=== PATIENT | male | born 1960 | race Caucasian/White ===

== ENCOUNTER 2020-08-16 09:59 | Emergency (ER) | payer OTHER, SELFPAY ==
[2020-08-16 10:01] VITALS: BP 116/61; PULSE 62; RESP 17; TEMP 36.1; O2SAT 98; BMI 26.6
--- NOTE | 2020-08-16 10:24 | CT_ITS ---
STUDY: CT ABDOMEN AND PELVIS WITHOUT CONTRAST REASON FOR EXAM: Male, 60 years old. LEFT SIDE ABD PAIN TODAY, NAUSEA RADIATION DOSAGE (If Supplied By Facility): CTDIvol = ( 7.96 ) mGy, DLP = ( 399.65 ) mGycm TECHNIQUE: Transaxial images were obtained from the dome of the diaphragm to the symphysis pubis without oral contrast, and without intravenous contrast. Sagittal and coronal images were reconstructed. Individualized dose optimization techniques were used for this CT. COMPARISON: None. FINDINGS: Mild patchy bibasilar infiltrates. The visualized portions of the heart are within normal limits. Normal liver. Small solitary gallstone. Normal spleen. Normal pancreas. Normal bilateral adrenal glands. Normal right kidney. Mild degree of left hydronephrosis and left hydroureter due to a 5.6 mm x 6 mm calculus in the midportion of the left ureter. Tiny calculi are also seen in the midportion of the left ureter just proximal to the larger calculus. The more proximal calculus measures 3.7 mm. Normal visualized stomach. Normal small intestine. Normal colon. The appendix is visualized and appears normal. Normal abdominal aorta. Normal inferior vena cava. Normal retroperitoneum. Normal urinary bladder. There are prostatic calcifications. There is a small umbilical hernia containing fat. Disc space narrowing at the L3-L4 level. CT/Abdomen/Pelvis without Cont IMPRESSION: Mild left hydronephrosis and left hydroureter due to 3 small calculi in the midportion of the left ureter the largest measuring 5.6 mm x 6 mm. Prostatic calcifications. Small solitary gallstone. Electronically Signed: Travon Ocasio, at 11:13 EDT , Service support ,
[2020-08-16] MEDS: Ketorolac 30 MG/ML Syringe IM (10:32)
[2020-08-16] MEDS: 0.9% Normal Saline 1,000 ML 1000 ML IV (11:52)
[2020-08-16 12:02] LABS: Absolute Lymphocyte Count 0.93 X10^3/uL (0.83-4.51); Basophil# 0.03 X10^3/uL; Basophil% 0.6 % (0-1); Eosinophil# 0.11 X10^3/uL; Hematocrit 44.6 % (40-54); Hemoglobin 15.2 g/dL (13.0-16.5); Lymphocyte # 0.93 X10^3/ul (4.0); Lymphocyte % 17.3 % (19-41); Mean Corp Hgb Conc 34.1 g/dL (32-36); Mean Corpuscular Hgb 34.6 pg (27.0-32.0); Mean Corpuscular Volume 101.6 fL (80-94); Mean Platelet Vol. 9.1 fl (6.2-12.0); Monocyte# 0.26 X10^3/uL; Monocyte% 4.8 % (0-10); NRBC Flagged by Analyzer 0 % (0-5); Neutrophil # 4.03 X10^3/uL (2.7-7.7); Neutrophil % 75.1 % (47-70); Platelet Count 150 K/mm3 (150-450); RBC Distribution Width CV 13.5 % (11.6-14.6); Red Blood Count 4.39 M/mm3 (4.6-6.2); White Blood Count 5.4 K/mm3 (4.4-11.0)
[2020-08-16 12:03] LABS: Color, Urine Yellow (Yellow); Glucose, Dipstick Normal (Normal); Ketone-Dipstick 5 mg/dl (Negative); Leukocyte Esterase-Dipstick 25 /ul (Negative); Nitrite-Dipstick Negative (Negative); Occult Blood-Urine 250 /ul (Negative); Protein-Dipstick 100 mg/dl (Negative); Specific Gravity, Urine 1.025 (1.002-1.030); Urine Bilirubin Dipstick 1 mg/dL (Negative); Urine Clarity Sl. Cloudy (Clear); Urine Urobilinogen Normal (Normal)
[2020-08-16 12:16] LABS: Anion Gap 6 (5-15); BUN 14 mg/dL (7-18); BUN/Creat Ratio 10.1 RATIO (10-20); Calcium,Total 8.5 mg/dL (8.5-10.1); Chloride 103 mmol/L (98-107); Creatinine, Serum 1.39 mg/dL (0.70-1.30); EST Glomerular Filtration Rate 56 mL/min (>60); Est Glom Filt Rate - Afr Amer 67 mL/min (>60); Estimated Creatinine Clearance 57.93 ml/min; Glucose 108 mg/dL (74-106); Potassium 4.4 mmol/L (3.5-5.1); Sodium Level 139 mmol/L (136-145)
[2020-08-16 12:21] LABS: Bacteria RARE /hpf (None Seen); Mucous, Urine 1+ /hpf (<or=2+); Red Blood Cells-Urine 50-100 SEEN /hpf (0-5); Squamous Epithelial Cells - UA 0-5 SEEN /hpf (0-5); White Blood Cells 0-5 SEEN /hpf (0-5)
--- NOTE | 2020-08-16 12:41 | ED.DCSUM_ITS ---
History of Present Illness Chief Complaint: Abd Pain Narrative: Patient presenting for evaluation secondary to abdominal pain. Patient reports that about 2 hours prior to arrival he had a sudden onset of left lower quadrant abdominal pain. Patient states that he does have a history of kidney stones, he has required lithotripsy in the past. He is also had a past history of appendectomy. Pain is paroxysmal, waxing and waning, has no exacerbating relieving factors. No fevers. There has been nausea but no vomiting. No diarrhea. No dysuria hematuria. Review of systems otherwise negative. Past Medical History - Allergies and Home Meds Allergies/Adverse Reactions: Allergies nitroglycerin Adverse Reaction (Verified 08/16/20 10:01) PT UNSURE OF REACTION LOWERS MY BLOOD PRESSURE. Primary Care Physician: Lore García MD [Primary Care Provider] - Prior records reviewed: Yes Past Medical History: - - Past history of kidney stone Surgical History: appendectomy Lives: Spouse/ Significant Other Smoking Status: Former smoker Alcohol: None Drugs: None Review of Systems All systems negative except as indicated General: Denies: Chills, Fever, Sweats Eyes: Denies: Visual changes - bilaterally, Diplopia ENT: Denies: Rhinorrhea, Sore throat Cardiovascular: Denies: Chest pain, Palpitations Respiratory: Denies: Dyspnea, Cough, Dyspnea on exertion Gastrointestinal: Reports: Abdominal pain, Nausea Genitourinary: Denies: Dysuria, Hematuria, Frequency Musculoskeletal: Denies: Back pain, Extremity Pain Skin: Denies: Rash, Wounds Neurological: Denies: Headache, Weakness, Numbness Physical Exam Vital Signs/Narrative: Vital Signs Temp Pulse Resp BP Pulse Ox 08/16/20 10:01 96.9 F L 62 17 116/61 98 Inital Vital Signs reviewed: Yes General: Well nourished, Well developed, No Acute Distress Head: Normocephalic, Atraumatic Eyes: Perrl, EOMI ENT: Moist mucous membranes, No rhinorrhea Neck: Supple, Nontender Cardiovascular: Regular rate, Regular rhythm, No murmurs, - - 2+ DP pulses bilaterally symmetric. Respiratory: No distress, CTA bilaterally, Chest nontender Abdomen: Soft, Nontender, Nondistended, Normal bowel sounds, - - Patient complains of pain in the left lower quadrant but this is not reproducible. No flank tenderness. No evidence of overlying vesicular rash. Back: Nontender, Normal Inspection Extremities: Nontender, No edema Skin: Normal color, No rash Neurological: Alert, Oriented x3, Cranial nerves II-XII grossly intact, Normal Strength, Normal Sensation Psychological: Normal affect, Normal Mood Diagnostic/Tx/Re-eval Clinical Impression(s) from Imaging Studies Abdomen/Pelvis CT 08/16/20 10:24 IMPRESSION: Mild left hydronephrosis and left hydroureter due to 3 small calculi in the midportion of the left ureter the largest measuring 5.6 mm x 6 mm. Prostatic calcifications. Small solitary gallstone. Electronically Signed: Travon Ocasio, at 11:13 EDT , Service support , Laboratory Data 08/16/20 08/16/20 08/16/20 11:48 11:48 11:48 WBC 5.4 RBC 4.39 L Hgb 15.2 Hct 44.6 MCV 101.6 H MCH 34.6 H MCHC 34.1 RDW Std Deviation 51.0 H RDW Coeff of [place] 13.5 Plt Count 150 MPV 9.1 Immature Gran % (Auto) 0.200 Neut % (Auto) 75.1 H Lymph % (Auto) 17.[address] [place] % (Auto) 4.8 Eos % (Auto) 2.0 Baso % (Auto) 0.6 Absolute Neuts (auto) 4.0 Absolute Lymphs (auto) 0.93 Nucleated RBC % 0 Sodium 139 Potassium 4.4 Chloride 103 Carbon Dioxide 30.0 Anion Gap 6 BUN 14 Creatinine 1.39 H Estim Creat Clear Calc 57.93 Est GFR (MDRD) Af Amer 67 Est GFR (MDRD) Non-Af 56 L BUN/Creatinine Ratio 10.1 Glucose 108 H Calcium 8.5 Urine Color Yellow Urine Clarity Sl. Cloudy Urine pH 5.0 Ur Specific [place] 1.025 Urine Protein 100 H Urine Glucose (UA) Normal Urine Ketones 5 H Urine Occult Blood 250 H Urine Nitrite Negative Urine Bilirubin 1 H Urine Urobilinogen Normal Ur Leukocyte Esterase 25 H Urine RBC 50-100 SEEN Urine WBC 0-5 SEEN Ur Squamous Epith Cells 0-5 SEEN Urine Bacteria RARE Urine Mucus 1+ - Medical Decision Making Patient presented for evaluation secondary to flank pain. This started 2 hours prior to arrival, initially I did not feel the lab work was indicated. Urinalysis was checked shows hematuria no evidence of infection. CT abdomen and pelvis was performed however and this shows #3 left-sided nephroliths within the patient's ureter. IV was established to obtain baseline lab work. Patient's creatinine noted to be 1.3 without any prior to compare to. Patient had significant improvement of his pain with IM Toradol. Due to the fact that the patient has 3 kidney stones I do believe that he requires close urologic follow- up. Patient sees urologist in [place], Dr. Gastelum, who will be attempted to be contacted. I still feel the patient is appropriate for initial outpatient management. He was given strict return instructions. Patient will be given Iaeger and Flomax for outpatient treatment. Patient was discharged in stable condition. ED Disposition - Plan for ED Patient: Disposition: Home or Assisted Living Diagnosis: Urolithiasis Instructions: ED Renal Stone w Colic Prescriptions: Tamsulosin HCl [Flomax] 0.4 mg PO DAILY #7 cap Prescription Printed Hydrocodone Bitart/Apap 5-325 [Iaeger 5MG-325MG] 1 tab PO Q6H PRN PRN 3 Days #12 tab PRN Reason: Pain Prescription Printed Referrals: Derek Gastelum II, MD [NON-STAFF] - 3-5 Days
--- NOTE | 2020-08-16 12:51 | ED.RN ---
LEFT A MESSAGE FOR DR HARRY
[2020-08-16 13:14] VITALS: BP 121/91; PULSE 66; RESP 18; O2SAT 96
== END 2020-08-16 13:33 | disposition home or self-care (01) ==
PROVIDERS: Emergency Provider Emergency Medicine; PCP Family Medicine
DX: N20.0 Calculus of kidney (principal); R31.9 Hematuria, unspecified; Z87.442 Personal history of urinary calculi; Z87.891 Personal history of nicotine dependence
CPT/HCPCS: 74176; 80048; 81001; 85025; 96360; 96372; 99285; J7030